=== PATIENT | female | born 1945 | race Caucasian/White ===

== ENCOUNTER 2024-02-19 09:57 | Inpatient (IN) ==
--- NOTE | 2024-02-18 09:49 | Anesthesiology Consultation ---
Date of Service February 18, 2024 Assessment & Plan (1) Encounter for pre-operative examination: - Infectious disease screening: Per assessment on 02/05/24: No known recent infectious disease contacts or current infectious disease symptoms. - Eliquis instructions per surgeon/prescriber - Vascular visit (11/19/23): "CT angiography shows a severe stenosis of the carotid bifurcation on the left at the origin of the internal carotid.. At this point being that this is severe stenosis we underwent a discussion about the intervention on carotid stenosis.. she agreed to go ahead with a TCAR approach.." - PCP visit (01/07/24): "her ekg was done and no acute changes.. her cxr was ordered for pre op.. she is to continue with her current meds.. i did speak with dr palacio's office and advised pt needs scheduled for her surgery in feb or mar. she is to keep her appts with her other physicians.. her lab work was ordered pre op which she is not to have done until surgery is scheduled.. call if problems or sx worsen" Chart Review Chart Review: Acceptable Risk for Surgery and Patient NOT seen in Pre Admission Testing History Surgery Operation Date: 02/19/24 11:30 Proposed Procedures p Left Transcarotid Artery Revascularization - Derek Palacio MD Height/Weight Height: 5 ft 5 in Weight: 70.76 kg Allergies Allergy/AdvReac Type Severity Reaction Status Date / Time No Known Drug Allergies Allergy Verified 02/05/24 12:15 Medications Home Medications Medication Instructions Recorded Confirmed Last Taken cholecalciferol (vitamin D3) 25 1,000 units PO QAM 03/13/19 02/05/24 Unknown mcg (1,000 unit) capsule coenzyme Q10 200 mg capsule (Co 200 mg PO QAM 03/13/19 02/05/24 Unknown Q-10) multivitamin 1 tab PO QAM 03/13/19 02/05/24 Unknown wheat dextrin 1 gram tablet 1 gm PO QAM 03/13/19 02/05/24 Unknown cranberry 500 mg capsule 500 mg PO QAM 05/20/19 02/05/24 Unknown apixaban 5 mg tablet (Eliquis) 5 mg PO BID #90 tabs 07/12/23 02/05/24 Unknown aspirin 81 mg tablet,delayed 81 mg PO QPM 01/07/24 02/05/24 Unknown release (Adult Low Dose Aspirin) atorvastatin 20 mg tablet 20 mg PO QPM 01/07/24 02/05/24 Unknown clopidogrel 75 mg tablet (Plavix) 75 mg PO QAM 01/07/24 02/05/24 Unknown atenolol 50 mg tablet 50 mg PO QPM 02/05/24 02/05/24 Unknown Past Medical History Medical History PFO (patent foramen ovale) Noted on 2020 Echo Stenosis of left vertebral artery Submandibular lymphadenopathy Axillary adenopathy Diverticulosis Hyperlipidemia Left thyroid nodule Biopsy x3 "Benign" Left carotid stenosis Paroxysmal atrial fibrillation Taking Eliquis F/U PRN per cardio 2020 evaluation Hypertension Past Family History Family History Mother Breast cancer Brother Prostate cancer Pancreatic cancer Bone cancer Denies family history of Ovarian cancer Myocardial infarction Colorectal cancer Past Surgical History Surgical History Hx of colonoscopy S/P thyroid biopsy benign Hx of hand surgery (1999) x2 right thumb and middle finger trigger finger surgery History of removal of cyst back of neck, "benign" no anesthesia Social History Smoking Status: Never smoker Do You Dip or Chew Tobacco: No Hx Alcohol Use: Yes Alcohol type: wine alcohol intake frequency: a few times a month Hx Substance Use: No Testing Laboratory Results 02/18/24 10:40 02/18/24 10:40 PT 11.4 Seconds (9.0-12.0) 02/18/24 10:40 INR 1.1 (0.9-1.1) 02/18/24 10:40 APTT 29 Seconds (21-31) 02/18/24 10:40 Blood Type A Negative 02/18/24 10:41 Antibody Screen NEGATIVE 02/18/24 10:41 Electrocardiogram Date: 01/07/24 SR with sinus arrhythmia at 65bpm. "Normal ECG" Chest X-Ray Date: 01/07/24 Findings: + NAD Echocardiogram Date: 08/26/20 EF 65-70%. No RWMA. Mild biatrial dilation. No significant valvular disease. PFO. Grade I DD. Other Testing Carotid duplex Date: 10/17/23 LICA 50-69% stenosis. Suggestive of high grade common carotid disease which may render estimation of ICA stenosis inaccurate. CTA Neck Date: 10/30/23 LICA approximately 50%. Severe left vertebral artery stenosis. Diminished right common and ICA without focal stenosis. Severe stenosis involving the very distal common carotid artery at the bifurcation. Severe left vertebral artery stenosis. Left axillary and right submandibular lymphadenopathy.
--- NOTE | 2024-02-18 11:15 | History & Physical Report ---
Date of Service February 18, 2024 Assessment & Plan (1) Stenosis of left internal carotid artery: Plan: Being that there is a severe stenosis we underwent a discussion about the intervention on her carotid stenosis. We went over the procedures available which included a carotid enterectomy versus a TCAR. After thorough discussion she agreed to go ahead with a TCAR approach. She understood the risks options and benefits which were documented on the consent form. History of Present Illness Chief Complaint: Severe left internal carotid artery stenosis Primary Care Provider: Patrick Fuentes DO Ms. Willis is a 77-year-old fairly healthy female who was having routine ultrasounds for carotid stenosis. It was found that the left carotid stenosis has worsened. She underwent CT angiography which showed a severe stenosis of her left internal carotid artery at the bifurcation of the common. She has no history of CVAs or TIAs or amaurosis fugax. She has no complaints of claudication of the upper or lower extremities. Allergies Allergy/AdvReac Type Severity Reaction Status Date / Time No Known Drug Allergies Allergy Verified 02/05/24 12:15 Home Medications Medication Instructions Recorded Confirmed Type cholecalciferol (vitamin D3) 25 1,000 units PO QAM 03/13/19 02/05/24 History mcg (1,000 unit) capsule coenzyme Q10 200 mg capsule (Co 200 mg PO QAM 03/13/19 02/05/24 History Q-10) multivitamin 1 tab PO QAM 03/13/19 02/05/24 History wheat dextrin 1 gram tablet 1 gm PO QAM 03/13/19 02/05/24 History cranberry 500 mg capsule 500 mg PO QAM 05/20/19 02/05/24 History apixaban 5 mg tablet (Eliquis) 5 mg PO BID #90 tabs 07/12/23 02/05/24 Rx aspirin 81 mg tablet,delayed 81 mg PO QPM 01/07/24 02/05/24 History release (Adult Low Dose Aspirin) atorvastatin 20 mg tablet 20 mg PO QPM 01/07/24 02/05/24 History clopidogrel 75 mg tablet (Plavix) 75 mg PO QAM 01/07/24 02/05/24 History atenolol 50 mg tablet 50 mg PO QPM 02/05/24 02/05/24 History Past Med/Surg History Problem List (Updated 02/18/24 @ 11:13 by Derek Hermosillo MD) Stenosis of left internal carotid artery Encounter for pre-operative examination Axillary adenopathy Submandibular lymphadenopathy Stenosis of left vertebral artery Left thyroid nodule Female cystocele Frequent PVCs Hyperlipidemia (Chronic) Hypertension (Chronic) Medical History PFO (patent foramen ovale) Noted on 2020 Echo Stenosis of left vertebral artery Submandibular lymphadenopathy Axillary adenopathy Diverticulosis Hyperlipidemia Left thyroid nodule Biopsy x3 "Benign" Left carotid stenosis Paroxysmal atrial fibrillation Taking Eliquis F/U PRN per cardio 2020 evaluation Hypertension Surgical History Hx of colonoscopy S/P thyroid biopsy benign Hx of hand surgery (1999) x2 right thumb and middle finger trigger finger surgery History of removal of cyst back of neck, "benign" no anesthesia Family History Mother Breast cancer Brother Prostate cancer Pancreatic cancer Bone cancer Denies family history of Ovarian cancer Myocardial infarction Colorectal cancer Social History Smoking Status: Never smoker Second Hand Exposure: No; Do You Dip or Chew Tobacco: No; Tobacco Cessation Education Requested by Patient: No Hx Alcohol Use: Yes Alcohol type: wine Alcohol Intake Frequency: Monthly or Less Hx Substance Use: No Preferred Language: Syriac Communication Ability: Effective Visual Impairment: Limited Hearing Ability: Normal 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 Estate Assessor Required: No Beliefs That Will Affect Care: None marital status: Current Living Situation: Spouse current occupational status: 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 How many Children do You have: 3 Other Information That Helps Us Care for You: No Feels Safe at Home: Yes Safety Concerns: Feels Safe At This Time Childhood Exposure to Second-Hand Smoke: Yes Diet: regular caffeine: Yes (coffee 3-4 cups/day) during the past year weight has: remained stable Dental Care, Regularly: Yes Physical Activity Frequency: Daily Physical Activity Frequency Comment: bowl twice a week, walks on treadmill Seatbelt Use: always Sunscreen Use: Yes Do you think of yourself as: straight/heterosexual Gender Identity: Female Assistive Devices: Glasses Review of Systems All systems reviewed & are unremarkable except as noted in HPI & below Physical Exam Physical Exam: On exam she is awake alert and oriented x 3. Her blood pressure is 162/88 on the right and 166/90 on the left. She is in no apparent distress. Her radials and carotids are +2 bilaterally. There is a left carotid bruit. Lungs are clear. Heart is regular in rhythm abdominal exam is benign. Femorals and pedal pulses are all +2 bilaterally. She has normal capillary refill in both feet. Neurologic exam is grossly intact motor and sensory function
[2024-02-18 12:52] LABS: INR 1.1 (0.9-1.1); Partial Thromboplastin Ratio 1.1; Partial Thromboplastin Time 29 Seconds (21-31); Prothrombin Time 11.4 Seconds (9.0-12.0)
[2024-02-18 12:53] LABS: Basophils # (auto) 0.06 K/uL (0.00-0.20); Basophils % (auto) 0.7 %; Eosinophils # (auto) 0.18 K/uL (0.00-0.50); Hematocrit (blood only) 38.9 % (37.0-47.0); Hemoglobin 12.3 g/dl (12.0-16.0); Immature Granulocytes # (auto) 0.02 K/uL (0.01-0.20); Immature Granulocytes % (auto) 0.2 %; Lymphocytes # (auto) 3.36 K/uL (1.20-3.40); Lymphocytes % (auto) 38.1 %; Mean Corpuscular Hemoglobin 30.3 pg (25.0-34.0); Mean Corpuscular Hgb Conc 31.6 g/dL (32.0-36.0); Mean Corpuscular Volume 95.8 fL (80.0-100.0); Monocytes # (auto) 1.14 K/uL (0.11-0.59); Monocytes % (auto) 12.9 %; Neutrophils # (auto) 4.06 K/uL (1.40-6.50); Neutrophils % (auto) 46.1 %; Platelet Count 323 K/uL (130-400); RDW Standard Deviation 46.2 fL (36.4-46.3); Red Blood Count 4.06 M/uL (4.20-5.40); White Blood Count 8.82 K/ul (4.8-10.8)
[2024-02-18 13:42] LABS: BUN Creatinine Ratio 18.8 (10-20); Calcium 9.3 mg/dl (8.6-10.3); Creatinine Clr Calc Pharmacy 56.3 ml/min; Est GFR (African American) 81.3 ml/min; Est GFR (Non-African American) 70.1 ml/min
[2024-02-19] MEDS ORDERED: ONDANSETRON INJ 2 MG/ML 2 ML VIAL ONE (10:28)
[2024-02-19] MEDS ORDERED: LIDOCAINE 2% 2 ML VIAL/AMP(20MG/ML) INFIL ONE (10:28)
[2024-02-19] MEDS ORDERED: GLYCOPYRROLATE 0.2 MG/ML VIAL ONE (10:28)
[2024-02-19] MEDS ORDERED: fentaNYL citrate PF 100 MCG/2 ML VIAL ONE ×2 (10:28→15:34)
[2024-02-19] MEDS ORDERED: DEXAMETHASONE SOD INJ 4 MG/ML VIAL ONE (10:28)
[2024-02-19] MEDS ORDERED: PROPOFOL IV EMULSION 10 MG/ML 20 ML VIAL IV ONE (10:28)
[2024-02-19] MEDS ORDERED: ROCURONIUM BROMIDE 10 MG/ML 5 ML VIAL IV ONE (10:28)
[2024-02-19] MEDS: LACTATED RINGER'S 1,000 ML IV SCH (10:47)
[2024-02-19] MEDS ORDERED: ONDANSETRON INJ 2 MG/ML 2 ML VIAL IV PRN (11:05)
[2024-02-19] MEDS ORDERED: ePHEDrine sulfate 50 MG/ML AMP IV PRN (11:05)
[2024-02-19] MEDS ORDERED: fentaNYL citrate PF 100 MCG/2 ML VIAL IV PRN (11:05)
[2024-02-19] MEDS ORDERED: ATROPINE SULFATE 0.1 MG/ML 10ML SYR IV PRN (11:05)
[2024-02-19] MEDS ORDERED: CALCIUM CHLORIDE 10% 10 ML SYR IV ONE (11:37)
[2024-02-19] MEDS ORDERED: ceFAZolin 330 MG/ML 1 GM VIAL ONE (11:43)
--- NOTE | 2024-02-19 13:55 | Anesthesia Procedure Note ---
Anesthesia Procedure Note Arterial Line Note Patient medical history, medications, allergies and vitals reviewed Consent: Risk / Benefits Reviewed With: PT / POA / Parent / Guardian, Accepts Plan, Informed Consent Obtained and All Questions Answered Monitors attached: Blood Pressure, CO2, EKG and Pulse Oximetry Time out completed: Yes Hand hygeine: Soap and water and Alcohol based hand rub Equipment/Supplies: Cap, Mask, Sterile gown, Sterile gloves, Sterile drapes and Sterile procedures used Skin prep: Chloraprep Local medication: 1% Lidocaine (ml) Ultrasound used: Yes Attempts: 1 Procedure Summary: 20 gauge angiocath advanced until return of bright red blood and needle was advanced beyond the artery using a through and through technique. Needle was removed and catheter withdrawn until return of pulsatile red blood. An arterial wire was advanced through the catheter and into the artery and the catheter was then treaded into place over the wire. The wire was removed and the catheter secured with tape and covered with occlusive dressing. Waveform consistent with correct arterial placement. After placement, normal perfusion was observed distal to the site of catheter placement. Post-Procedure: Pt hemodynamically stable, Pt tolerates well and No complication
--- NOTE | 2024-02-19 14:42 | History & Physical Bridge Note ---
Date of Service February 19, 2024 History & Physical Bridge Note I have examined the patient, reviewed the History & Physical and in the interval since the performance of the History & Physical I have noted the following changes of clinical significance: no changes noted
[2024-02-19] MEDS: ceFAZolin 2000MG 2,000 MG/15 ML SYR IV SCH ×2 (15:06→22:28)
[2024-02-19] MEDS ORDERED: HEPARIN SOD (PORCINE) 1000 UNIT/ML ONE (15:35)
--- OUTSIDE RECORDS SUMMARY | 2024-02-19 15:44 | External Medical Summary | Summary of Care ---
Author Name Unknown Organization [facility] Address [address] [place] [address] Phone [phone] Care Team Providers Care Cigarette Tipper Name Role Phone Rich FuentesAdriano Primary Care Provider [phone] Encounter Details Date Type Department Care Team (Late st Contact Info) Description 01/07/2024 Orders Only Radiology, [facility] [address] [place] [id number] Requisition, External Radiology [address] [place] [address] Encounter for other preprocedural examination* Allergies No known active allergiesdocumented as of this encounter (statuses as of 01/07/2024) Medications Medication Sig Dispensed Refills Start Date End Date Status MULTIVITAMIN TABS OR one pill each day 0 04/30/2003 Active acetaminophen (TYLENOL) 325 MG Tablet Take 325 mg by mouth every 6 hours as needed for Pain. Active HYDROcodone-acetamino phen 5-325 mg per tab 5-325 MG per tablet Take 5-325 Tabs by mouth as needed for Pain. Take 1 to 2 tablets every 4 to 6 hours as needed for pain. 0 11/30/2016 Active MEGARED OMEGA-3 KRILL OIL 500 MG CAPS Take by mouth. Acti ve atorvaSTATin (LIPITOR) 20 MG TabletIndications:Dys lipidemia, goal LDL below 130 Take 1 Tab by mouth daily. 90 Tab 3 05/27/2018 Active atenolol (TENORMIN) 50 MG TabletIndications:HTN , goal below 140/90 TAKE 1 TABLET BY MOUTH DAILY FOR BLOOD PRESSURE 90 Tab 3 10/13/2018 Active documented as of this encounter (statuses as of 01/07/2024) Active Problems Problem Noted Date Diagnosed Date Impaired fasting glucose 09/09/2013 Overview: FBG 14 = 106 Dyslipidemia, goal LDL below 130 07/07/2009 Overview: Per Lipid Taxonomy. Fish oil, RYR 10 year ASCVD risk 03/12/2014 = 11.1% 10 year ASCVD risk 06/08/2015 = 11.7% 10 year ASCVD risk 01/19/2016 = 12.5% 10 year ASCVD risk 08/02/2016 = 13.7% Personal history of cervical dysplasia 9 Overview: 1980 txd. Normal pap 06/01, 03/03 DIVERTICULOSIS OF COLON 05/31/2005 Overview: 03/31 ADVANCE DIRECTIVE INFORMATION 04/18/2005 Overview: No, Advance Directive brochure offered , patient declined. DIFFUS CYSTIC MASTOPATHY 11/08/2004 HTN, goal below 150/90 10/16/2002 Overview: Atenolol 12/2801/26/2016 Home cuff: 130/79 Our cuff: 138/84 documented as of this encounter (statuses as of 01/07/2024) Resolved Problems Problem Noted Date Diagnosed Date Resolved Date Family hx-breast malignancy 11/21/2008 02/06/2017 Overview: mom Family history of GI malignancy 11/21/2008 02/06/2017 Overview: Fa 80. Scope 03/31 tics. Repeat 5 yr Special screening for osteoporosis 11/21/2008 02/06/2017 Overview: Dexa 11/26 repeat 5 yr Dyslipidemia, goal LDL below 160 04/11/2007 07/07/2009 Overview: Per Lipid Taxonomy. Fish oil Rotator cuff syndrome 04/11/20072008 documented as of this encounter (statuses as of 01/07/2024) Immunizations Name Administration Dates Next Due COVID-19 mRNA, LNP-s, No Pre serve, 2-Dose Series (Pfizer) 05/24/2021,10/19/2020,09/21/2020 Pneumococcal Conjugate Vacc, 13 Valent (Prevnar) 01/26/2016 Pneumococcal Polysaccharide PPV23 (Pneumovax) 01/04/2010 Seasonal Influenza, PF, 6 M & above, IM , (FluLaval or Fluzone) 05/27/2018 Seasonal Influenza, Quadriva lent, No Preserve, IM 05/23/2015 Seasonal Influenza, Split, I IV3, With Preserve, Inj 04/24/2014,04/04/2013,06/11/2012,06/04,04/26/2010,04/12/2009,05/19/2008 ,05/30/2007,05/28/2006 TDAP, Age 7 and older, IM (Adacel) 01/09/2008 Varicella Zoster Vaccine (Adult) 12/10/2011 documented as of this encounter Social History Tobacco Use Types Packs/Day Years Used Date Smoking Tobacco: Never Smokeless Tobacco: Never Alcohol Use Standard Drinks/Week Comments No 0 (1 standard drink = 0.6 oz pur e alcohol) PHQ-2 Answer Date Recorded PHQ-2 Score 0 05/27/2018 Exercise Vital Sign Answer Date Recorde d Days of Exercise per Week 3 days 2017 Minutes of Exercise per Session 30 min 05/27/2018 Sex and Gender Information Value Date Recorded Sex Assigned at Not on file Gender Identity Not on file Sexual Orientation Not on file Job Start Date Occupation Industry Not on file Not on file Not on file documented as of this encounter Plan of Treatment Pending Results Name Type Priority Associated Diagnoses Date /Time XR CHEST 2 VIEWS Medical Imaging Routine Encounter for other preprocedural examination 01/07/2024 11:23 AM EDT Scheduled Procedures Name Priority Associated Diagnoses Date/Ti me COLONOSCOPY FLEXIBLE PROXIMA L DIAGNOSTIC Recall Family history of colon cancer Health Maintenance Due Date Last Done Comments Albumin/Creatinine Ratio 1963 Zoster Vaccines (2 of 3) 02/04/2012 12/10/2011 DTaP,Tdap,and Td Vaccines (2 - Td or Tdap) 01/08/2018 01/09/2008 GFR 05/19/2019 05/19/2018, 01/2017, 07/30/2016, Additional history exists Depression Screening 05/27/2019 05/27/2018 Mammogram 09/23/2019 09/22/2018, 08/22, 09/05/2016, Additional history exists DXA Scan 04/10/2020 04/10/2013, 04/10/2013 Colonoscopy 04/27/2021 04/27/2016, 01/2016, 03/31/2010 COVID-19 Vaccine ( season) 2023 01/08/2022, 05/24/2021, 10/19/2020, Additional history exists Influenza Vaccine (FLU shot) (Season Ended) 2024 05/20/2019, 05/27/2018, 05/23/2015, Additional history exists RETIRED - COLONOSCOPY-EVERY 5 YRS AGES 18-100 Discontinued 04/27/2016, 04/27/2016, 03/31/2010, Additional history exists Pneumococcal Vaccine: 65+ Years Completed 07/08/2023, 01/26/2016, 01/04/2010 GARDASIL-HPV IMMUNIZATION SERIES Aged Out No longer eligible based on patient's age to complete this topic Hepatitis B Aged Out No longer eligi ble based on patient's age to complete this topic MENINGOCOCCAL (MENACTRA/MENVEO) Aged Out No longer eligible based on patient's age to complete this topic documented as of this encounter Medical Devices Not on filedocumented as of this encounter Visit Diagnoses Diagnosis Encounter for other preprocedural examination- Primary documented in this encounter Care Teams Cigarette Tipper Relationship Specialty Start Date End Date Patrick Fuentes DO [address] [place] [address] PCP - General Family Medicine 08/15/20 documented as of this encounter
[2024-02-19] MEDS ORDERED: PROTAMINE SULFATE 10 MG/ML 5 ML VIAL IV ONE (15:56)
[2024-02-19] MEDS: HEPARIN (PORCINE) 1000 UNIT/ML 10 ML (CATH LAB USE ONLY) ONE (15:59)
[2024-02-19] MEDS: THROMBIN FOR SOLN 20000 UNIT KIT ONE (16:04)
[2024-02-19] MEDS: BUPIVACAINE/EPINEPHRINE 0.5% MPF 1:200,000 30 ML VIAL ONE (16:04)
[2024-02-19] MEDS: ceFAZolin 330 MG/ML 1 GM VIAL ONE (16:04)
[2024-02-19] MEDS: GELATIN SPONGE SZ 100 ONE (16:04)
[2024-02-19] MEDS: VISIPAQUE IV ONE (16:08)
[2024-02-19] MEDS ORDERED: SUGAMMADEX SODIUM 200 MG/2 ML VIAL IV ONE (16:09)
--- NOTE | 2024-02-19 16:23 | Procedure Note ---
Angiogram Post Procedure Fluoroscopy Time (minutes): 2.4 Radiation (mGy): 14 Contrast: 9 Post Operative Report Pre & Post Diagnosis Operation Date: 02/19/24 11:30 Pre-Op Diagnosis: Stenosis of left internal carotid artery Post-Op Diagnosis: Stenosis of left internal carotid artery I identified the patient and participated in the time-out.: Yes Procedure Operation Date: 02/19/24 11:30 Actual Procedures p Left Transcarotid Artery Revascularization, Ultrasound Right Common Femoral Vein(Left) - Derek Hermosillo MD Surgeon Derek Hermosillo MD Principle Software Engineer none Estimated Blood Loss 10 Findings Consistent with Post-Op Diagnosis Specimens none Anesthesia Type General Disposition Accompanied Patient To Recovery: No Disposition: Recovery Room Indications This is a 78-year-old female with a severe stenosis of the left internal carotid artery. Endarterectomy versus TCAR were discussed with the patient. She elected to go ahead with TCAR procedure. I have discussed the risks options and benefits of the procedure with the patient. The patient understands the risks options and benefits and agrees to the procedure. Description of Procedure The patient was taken to the operating room and placed in supine position. After general anesthesia was accomplished the groins and left side of the neck and chest were prepped and draped in a sterile manner. Timeout was performed and the patient was identified. A transverse incision was made just above the clavicle between the heads of the sternocleidomastoid. This is carried down to where the common carotid artery was identified. It was isolated. It was slung with umbilical tape. Next the U stitch was placed in the common carotid artery with a 5-0 Prolene suture. Patient was given 7000 heparin at that time. Ultrasound was then used to localize the right common femoral vein. The vein was patent and compressed easily. Under ultrasound guidance the right common femoral vein was punctured and the venous sheath was inserted. This was aspirated and flushed with heparinized saline. ACT at that time was 347. Using micropuncture technique the common carotid artery was punctured. The micro sheath was inserted to 3 cm. Injection was then done showing the bifurcation. There was a significant lesion seen at the origin of the internal carotid artery on the left side. We then inserted the J-wire left and short of the lesion. The micro sheath was removed and the TCAR sheath was inserted. Once it was in place and held against the artery it was sutured to the chest wall and the incision edge. We then flushed the tubing appropriately. The venous return to was clamped onto the TCAR sheath. It was flushed through and then attached to the venous inflow sheath in the left groin. Sheath was checked for flow. The saline cleared nicely. The common carotid artery was then clamped. Flow reversal was instituted. We inserted a 6 x 25 balloon backloaded on the wire. The wire was passed through the lesion into the petrous portion of the internal carotid. The 6 balloon was then advanced to the lesion. Lesion was then predilated with a 6 mm balloon. Balloon was removed. We then inserted the 9/7 x 30 stent. This was deployed across the lesion without difficulty. The catheter was removed. The carotid was allowed to go 2 minutes with flow reversal. Completion angiogram was done at that time which showed a widely patent carotid stent. At that point the common carotid artery was unclamped. The venous return tubing was clamped and removed from the TCAR sheath. The blood was allowed to flow back into the venous system. Once this was completed the sheath was pulled from the groin and pressure was applied. The TCAR sheath was then removed and the 5-0 Prolene suture securely tied. Hemostasis was noted of the puncture site. Patient was given 25 mg of protamine to reverse the heparin effect. This was done prior to pulling the groin sheath. Wound was irrigated with Ancef solution. Adequate hemostasis was obtained of the wound. Once this was noted the wound was closed in usual fashion using a 3-0 Vicryl suture for the subcutaneous layer and a 4-0 subcuticular Vicryl suture for the skin edges. Dermabond was used for dressing.The patient left the operation room in satisfactory condition and tolerated the procedure well. All needle and sponge counts were correct at the end of the procedure. I attest to the content of the Intraoperative Record and any orders documented therein. Any exceptions are noted below.
[2024-02-19] MEDS ORDERED: LABETALOL HCL IV 5 MG/ML 20ML IV ONE ×2 (16:46→17:03)
--- NOTE | 2024-02-19 17:36 | Anesthesiology Progress Note ---
Date of Service February 19, 2024 Anesthesia Post Procedure Vital Signs Vital Signs: Temp Pulse Pulse Resp BP BP BP 02/19/24 17:30 36.7 C 63 19 148/63 H 144/77 H 02/19/24 17:20 36.7 C 65 14 152/64 H 151/77 H 02/19/24 17:10 76 22 166/72 H 151/79 H 02/19/24 17:00 70 24 157/70 H 158/82 H 02/19/24 16:51 36.7 C 80 16 156/70 H 149/65 H 02/19/24 10:28 36.8 C 80 20 166/85 H Pulse Ox O2 Del Method O2 Flow Rate 02/19/24 17:30 97 Nasal Cannula 2 02/19/24 17:20 95 Nasal Cannula 3 02/19/24 17:10 98 Oxymask 3 02/19/24 17:00 98 Oxymask 3 02/19/24 16:51 95 Oxymask 5 02/19/24 10:28 96 Room Air Transfer of Care Handoff Completed per policy Notes Mental Status: alert / awake / arousable and participated in evaluation Patient Amnestic to Procedure: Yes Nausea / Vomiting: adequately controlled Pain: adequately controlled Airway Patency, RR, SpO2: stable & adequate BP & HR: stable & adequate Hydration State: stable & adequate Anesthetic Complications: no major complications apparent and Pt Satisfied with anesthetic care
[2024-02-19] MEDS ORDERED: STAT IV Infusion **Titration per Protocol STA (18:52)
[2024-02-19] MEDS ORDERED: PHENYLEPHRINE/NSS 25 MG/250 ML BAG IV PRN (18:52)
[2024-02-19] MEDS ORDERED: oxyCODONE/ACETAMINOPHEN 5mg/325mg TAB PO PRN (18:52)
[2024-02-19] MEDS: ATORVASTATIN 20 MG TAB PO SCH (20:14)
[2024-02-19] MEDS: ATENOLOL 50 MG TABLET PO SCH (20:14)
[2024-02-19] MEDS: APIXABAN 5 MG TABLET PO SCH (20:15)
[2024-02-19] MEDS: ASPIRIN 81 MG ECTAB PO SCH (20:15)
--- NOTE | 2024-02-19 22:52 | Critical Care Consultation ---
Date of Consultation February 19, 2024 Assessment & Plan (1) Stenosis of left internal carotid artery: Status post left TCAR. Patient admitted to ICU for further monitoring postop overnight. -Empiric Ancef - ASA, Eliquis held tonight Following procedure - Further management per vascular surgery (2) Stenosis of left vertebral artery: Asymptomatic. Noted on previous CTA. Continue ASA, statin, Plavix (3) Hyperlipidemia: Continue statin (4) Paroxysmal atrial fibrillation: Currently sinus rhythm on monitor. Eliquis on hold due to recent surgery, restart per vascular surgery. Continuous monitoring on telemetry Supervising Physician Co-Signing Physician Notes Patient seen and examined. EMR reviewed. Discussed with critical care EARLINE and agree with assessment plan as noted. Please refer to my progress note from 02/20/2024 for additional details. History of Present Illness Attending Physician: Derek Hermosillo MD History of Present Illness Patient is a 78-year-old female with past medical history of paroxysmal A-fib, vertebral artery stenosis, HLD, HTN, and carotid artery stenosis that presents to the ICU following TCAR for left carotid artery. Patient had asymptomatic carotid stenosis which was being monitored and was found to have worsened on most recent CTA. She was scheduled for routine TCAR of the left carotid artery, for which she now presents postop to the ICU for monitoring overnight. On arrival to the ICU the patient is alert and oriented without acute distress. She denies any pain, numbness, tingling, changes in vision, headaches, syncope, dizziness, or other neurological symptoms. She denies recent illness or fevers, cough or congestion, shortness of breath, chest pain, palpitations, abdominal pain, nausea vomiting or diarrhea, swelling in hands or feet, or changes in gait. Patient to remain in ICU for further management at this time. Allergies Allergy/AdvReac Type Severity Reaction Status Date / Time No Known Drug Allergies Allergy Verified 02/19/24 10:22 Home Medications Medication Instructions Recorded Confirmed Type cholecalciferol (vitamin D3) 25 1,000 units PO QAM 03/13/19 02/19/24 History mcg (1,000 unit) capsule coenzyme Q10 200 mg capsule (Co 200 mg PO QAM 03/13/19 02/19/24 History Q-10) multivitamin 1 tab PO QAM 03/13/19 02/19/24 History wheat dextrin 1 gram tablet 1 gm PO QAM 03/13/19 02/19/24 History cranberry 500 mg capsule 500 mg PO QAM 05/20/19 02/19/24 History apixaban 5 mg tablet (Eliquis) 5 mg PO BID #90 tabs 07/12/23 02/19/24 Rx aspirin 81 mg tablet,delayed 81 mg PO QPM 01/07/24 02/19/24 History release (Adult Low Dose Aspirin) atorvastatin 20 mg tablet 20 mg PO QPM 01/07/24 02/19/24 History clopidogrel 75 mg tablet (Plavix) 75 mg PO QAM 01/07/24 02/19/24 History atenolol 50 mg tablet 50 mg PO QPM 02/05/24 02/19/24 History Patient History Medical History PFO (patent foramen ovale) Noted on 2020 Echo Stenosis of left vertebral artery Submandibular lymphadenopathy Axillary adenopathy Diverticulosis Hyperlipidemia Left thyroid nodule Biopsy x3 "Benign" Left carotid stenosis Paroxysmal atrial fibrillation Taking Eliquis F/U PRN per cardio 2020 evaluation Hypertension Surgical History Hx of colonoscopy S/P thyroid biopsy benign Hx of hand surgery (1999) x2 right thumb and middle finger trigger finger surgery History of removal of cyst back of neck, "benign" no anesthesia Family History Mother Breast cancer Brother Prostate cancer Pancreatic cancer Bone cancer Denies family history of Ovarian cancer Myocardial infarction Colorectal cancer Social History Smoking Status: Never smoker Second Hand Exposure: No; Do You Dip or Chew Tobacco: No; Tobacco Cessation Education Requested by Patient: No Hx Alcohol Use: No Hx Substance Use: No Preferred Language: Greenlandic Communication Ability: Effective Visual Impairment: Limited Hearing Ability: Normal News Clipping Cutter Required: No Beliefs That Will Affect Care: None marital status: Current Living Situation: Spouse Current Living Situation Comment: with current occupational status: 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 How many Children do You have: 3 Other Information That Helps Us Care for You: No Feels Safe at Home: Yes Safety Concerns: Feels Safe At This Time Childhood Exposure to Second-Hand Smoke: Yes Diet: regular caffeine: Yes (coffee 3-4 cups/day) during the past year weight has: remained stable Dental Care, Regularly: Yes Physical Activity Frequency: Daily Physical Activity Frequency Comment: bowl twice a week, walks on treadmill Seatbelt Use: always Sunscreen Use: Yes Do you think of yourself as: straight/heterosexual Gender Identity: Female Assistive Devices: Glasses Review of Systems Review of Systems: All systems reviewed & are unremarkable except as noted in HPI & below Physical Exam Constitutional: WD/WN, vitals as above Eyes: PERRL, conjunctivae normal, anicteric sclerae ENMT: external ear and nose normal, oropharynx normal Neck: trachea midline, no thyromegaly Respiratory: normal respiratory effort, lungs clear to auscultation Cardiovascular: RRR, no murmur, no edema Heart Sounds: normal S1 and normal S2 Gastrointestinal (Abdomen): normal bowel sounds, soft, nontender, no hepatosplenomegaly Musculoskeletal: no cyanosis or clubbing, extremities motor strength 5/5 Skin: Erythema in the anterior left neck with mild to moderate swelling, patient also has bloody dressing to the right groin, with mild swelling and erythema Neurologic: PERRL, EOMI, accommodation nl, no face palsy, no dysarthria Psychiatric: A+Ox3, euthymic affect Results & Data Results & Data Vital Signs (Past 12 Hours) Vital Signs Temp Pulse Pulse Pulse Resp BP BP 02/19/24 19:42 73 18 02/19/24 19:03 73 18 02/19/24 19:00 145/84 H 02/19/24 19:00 145/84 H 02/19/24 18:57 67 22 02/19/24 18:52 36.9 C 02/19/24 18:51 67 02/19/24 18:30 69 19 02/19/24 18:15 63 20 02/19/24 18:00 36.7 C 69 17 02/19/24 17:45 36.7 C 66 17 02/19/24 17:30 36.7 C 63 19 02/19/24 17:20 36.7 C 65 14 02/19/24 17:10 76 22 02/19/24 17:00 70 24 02/19/24 16:51 36.7 C 80 16 02/19/24 10:28 36.8 C 80 20 166/85 H BP BP Pulse Ox O2 Del Method O2 Flow Rate 02/19/24 19:42 97 02/19/24 19:03 97 02/19/24 19:00 02/19/24 19:00 02/19/24 18:57 98 02/19/24 18:52 02/19/24 18:51 97 02/19/24 18:30 144/62 H 143/72 H 97 Nasal Cannula 2 02/19/24 18:15 140/60 139/74 97 Nasal Cannula 2 02/19/24 18:00 141/61 H 137/75 96 Nasal Cannula 2 02/19/24 17:45 141/59 H 133/73 96 Nasal Cannula 2 02/19/24 17:30 148/63 H 144/77 H 97 Nasal Cannula 2 02/19/24 17:20 152/64 H 151/77 H 95 Nasal Cannula 3 02/19/24 17:10 166/72 H 151/79 H 98 Oxymask 3 02/19/24 17:00 157/70 H 158/82 H 98 Oxymask 3 02/19/24 16:51 156/70 H 149/65 H 95 Oxymask 5 02/19/24 10:28 96 Room Air Coding Level of Care Code 98069 IN/OBS CONSULT LVL 3,45M Diagnoses Stenosis of left internal carotid artery I65.22 Stenosis of left vertebral artery I65.02 Hyperlipidemia E78.5 Paroxysmal atrial fibrillation I48.0 Time Spent (min) 38
[2024-02-20] MEDS: ondansetron HCL 6 MG in DEXTROSE 5% 50 ML IV PRN (01:08)
[2024-02-20] MEDS: MULTIVITAMIN TAB PO SCH (07:30)
[2024-02-20] MEDS: CHOLECALCIFEROL 25 MCG (1000 UNITS) TAB PO SCH (07:30)
[2024-02-20] MEDS: LACTATED RINGER'S 1,000 ML IV SCH ×2 (07:31→17:43)
--- NOTE | 2024-02-20 08:02 | Critical Care Progress Note ---
Date of Service February 20, 2024 Assessment & Plan (1) Stenosis of left internal carotid artery: (2) Hyperlipidemia: (3) Paroxysmal atrial fibrillation: Plan Impression: 78-year-old female status post left TCAR. Postop day 1 and doing well clinically. Recommendations: 1. Status post TCAR for carotid stenosis. Doing well. Small hematoma postoperatively. Does not appear to be causing any tracheal deviation or airway compromise. Management per vascular surgery. 2. Okay to discontinue arterial line. 3. Holding her anticoagulation for A-fib. Will restart when vascular surgery feels its appropriate given her hematoma. 4. Disposition per vascular surgery. Patient is doing well clinically. From a critical care perspective, her issues are stable. Will sign off. Feel free to contact us with questions or concerns Admission and Anticipated Discharge Date Admission Date: February 19, 2024 Subjective Patient seen and examined. EMR reviewed. The patient is awake alert conversant and in no distress. She is having some mild pain at her incision site. She is experiencing some mild hoarseness but no difficulty with chewing or swallowing. No neurological complaints. She is hemodynamically stable. Review of Systems Review of Systems: All systems reviewed & are unremarkable except as noted in Subjective Physical Exam Constitutional: WD/WN, vitals as above Neck: trachea midline, no thyromegaly Small to moderate-sized hematoma over the incision site in the left supraclavicular area. Mildly tender to palpation Respiratory: normal respiratory effort, lungs clear to auscultation Cardiovascular: Rate/Rhythm: + irregularly irregular Heart Sounds: normal S1 and normal S2; no murmur Extremities: no edema Gastrointestinal (Abdomen): normal bowel sounds, soft, nontender, no hepatosplenomegaly Musculoskeletal: Extremities: extremities normal to inspection Skin: no rashes, warm and dry Neurologic: Nonfocal exam Lymphatic: no cervical lymphadenopathy Results & Data Results & Data Vital Signs (Past 12 Hours) Vital Signs Temp Pulse Resp BP Pulse Ox O2 Del Method 02/20/24 07:36 36.8 C 02/20/24 07:30 135/86 02/20/24 07:30 135/86 02/20/24 07:27 71 19 99 Room Air 02/20/24 07:15 79 19 97 02/20/24 07:12 70 20 98 02/20/24 06:57 71 19 99 02/20/24 05:51 64 17 99 02/20/24 05:45 163/71 H 02/20/24 05:45 163/71 H 02/20/24 05:39 64 15 99 02/20/24 05:30 155/72 H 02/20/24 05:30 155/72 H 02/20/24 05:21 65 16 99 02/20/24 05:18 67 17 99 02/20/24 05:15 153/73 H 02/20/24 05:15 153/73 H 02/20/24 05:15 153/73 H 02/20/24 05:15 153/73 H 02/20/24 05:12 67 16 98 02/20/24 05:03 63 17 99 02/20/24 05:00 159/71 H 02/20/24 04:57 64 15 99 02/20/24 04:54 65 16 99 02/20/24 04:45 161/68 H 02/20/24 04:36 65 17 98 02/20/24 04:15 155/74 H 02/20/24 04:15 65 16 98 02/20/24 04:00 157/88 H 02/20/24 04:00 157/88 H 02/20/24 04:00 157/88 H 02/20/24 04:00 76 16 98 02/20/24 04:00 36.8 C 02/20/24 04:00 76 157/88 H 02/20/24 03:45 167/83 H 02/20/24 03:45 167/83 H 02/20/24 03:33 70 19 99 02/20/24 03:31 166/83 H 02/20/24 03:31 166/83 H 02/20/24 03:27 74 17 99 02/20/24 03:18 87 18 99 02/20/24 03:15 176/84 H 02/20/24 03:00 163/86 H 02/20/24 02:57 69 20 99 02/20/24 02:48 65 16 99 02/20/24 02:45 155/77 H 02/20/24 02:45 155/77 H 02/20/24 02:45 155/77 H 02/20/24 02:45 155/77 H 02/20/24 02:15 165/78 H 02/20/24 02:12 65 16 99 02/20/24 02:00 64 18 99 02/20/24 02:00 173/80 H 02/20/24 02:00 173/80 H 02/20/24 02:00 173/80 H 02/20/24 01:45 62 15 98 02/20/24 01:33 66 18 98 02/20/24 01:30 166/87 H 02/20/24 01:30 166/87 H 02/20/24 01:30 166/87 H 02/20/24 01:30 166/87 H 02/20/24 01:30 166/87 H 02/20/24 01:27 67 18 99 02/20/24 01:16 176/76 H 02/20/24 01:15 65 16 99 02/20/24 01:03 76 16 99 02/20/24 01:00 169/79 H 02/20/24 00:57 76 10 L 98 02/20/24 00:45 171/86 H 02/20/24 00:45 171/86 H 02/20/24 00:31 173/88 H 02/20/24 00:31 173/88 H 02/20/24 00:31 173/88 H 02/20/24 00:30 79 25 H 99 02/20/24 00:15 167/82 H 02/20/24 00:15 167/82 H 02/20/24 00:09 61 15 98 02/20/24 00:00 71 02/20/24 00:00 170/82 H 02/20/24 00:00 170/82 H 02/20/24 00:00 64 17 99 02/20/24 00:00 36.9 C 02/20/24 00:00 62 168/73 H 02/19/24 23:45 171/79 H 02/19/24 23:45 64 16 98 02/19/24 23:33 63 14 98 02/19/24 23:30 163/78 H 02/19/24 23:30 163/78 H 02/19/24 23:30 163/78 H 02/19/24 23:27 62 14 97 02/19/24 23:18 61 21 97 02/19/24 23:15 168/78 H 02/19/24 23:15 168/78 H 02/19/24 23:03 62 16 97 02/19/24 23:00 158/79 H 02/19/24 23:00 62 25 H 98 02/19/24 22:51 165/83 H 02/19/24 22:51 165/83 H 02/19/24 22:51 62 25 H 97 02/19/24 22:45 64 15 165/83 H 97 02/19/24 22:24 73 20 97 02/19/24 22:09 67 15 97 02/19/24 21:45 69 17 98 02/19/24 21:30 69 17 97 02/19/24 21:21 72 25 H 97 02/19/24 20:45 71 18 91 02/19/24 20:39 75 21 98 02/19/24 20:21 74 15 99 Critical Care Results & Data Vital Signs (Past 12 Hours) Vital Signs Temp Pulse Resp BP Pulse Ox O2 Del Method 02/20/24 07:36 36.8 C 02/20/24 07:30 135/86 02/20/24 07:30 135/86 02/20/24 07:27 71 19 99 Room Air 02/20/24 07:15 79 19 97 02/20/24 07:12 70 20 98 02/20/24 06:57 71 19 99 02/20/24 05:51 64 17 99 02/20/24 05:45 163/71 H 02/20/24 05:45 163/71 H 02/20/24 05:39 64 15 99 02/20/24 05:30 155/72 H 02/20/24 05:30 155/72 H 02/20/24 05:21 65 16 99 02/20/24 05:18 67 17 99 02/20/24 05:15 153/73 H 02/20/24 05:15 153/73 H 02/20/24 05:15 153/73 H 02/20/24 05:15 153/73 H 02/20/24 05:12 67 16 98 02/20/24 05:03 63 17 99 02/20/24 05:00 159/71 H 02/20/24 04:57 64 15 99 02/20/24 04:54 65 16 99 02/20/24 04:45 161/68 H 02/20/24 04:36 65 17 98 02/20/24 04:15 155/74 H 02/20/24 04:15 65 16 98 02/20/24 04:00 157/88 H 02/20/24 04:00 157/88 H 02/20/24 04:00 157/88 H 02/20/24 04:00 76 16 98 02/20/24 04:00 36.8 C 02/20/24 04:00 76 157/88 H 02/20/24 03:45 167/83 H 02/20/24 03:45 167/83 H 02/20/24 03:33 70 19 99 02/20/24 03:31 166/83 H 02/20/24 03:31 166/83 H 02/20/24 03:27 74 17 99 02/20/24 03:18 87 18 99 02/20/24 03:15 176/84 H 02/20/24 03:00 163/86 H 02/20/24 02:57 69 20 99 02/20/24 02:48 65 16 99 02/20/24 02:45 155/77 H 02/20/24 02:45 155/77 H 02/20/24 02:45 155/77 H 02/20/24 02:45 155/77 H 02/20/24 02:15 165/78 H 02/20/24 02:12 65 16 99 02/20/24 02:00 64 18 99 02/20/24 02:00 173/80 H 02/20/24 02:00 173/80 H 02/20/24 02:00 173/80 H 02/20/24 01:45 62 15 98 02/20/24 01:33 66 18 98 02/20/24 01:30 166/87 H 02/20/24 01:30 166/87 H 02/20/24 01:30 166/87 H 02/20/24 01:30 166/87 H 02/20/24 01:30 166/87 H 02/20/24 01:27 67 18 99 02/20/24 01:16 176/76 H 02/20/24 01:15 65 16 99 02/20/24 01:03 76 16 99 02/20/24 01:00 169/79 H 02/20/24 00:57 76 10 L 98 02/20/24 00:45 171/86 H 02/20/24 00:45 171/86 H 02/20/24 00:31 173/88 H 02/20/24 00:31 173/88 H 02/20/24 00:31 173/88 H 02/20/24 00:30 79 25 H 99 02/20/24 00:15 167/82 H 02/20/24 00:15 167/82 H 02/20/24 00:09 61 15 98 02/20/24 00:00 71 02/20/24 00:00 170/82 H 02/20/24 00:00 170/82 H 02/20/24 00:00 64 17 99 02/20/24 00:00 36.9 C 02/20/24 00:00 62 168/73 H 02/19/24 23:45 171/79 H 02/19/24 23:45 64 16 98 02/19/24 23:33 63 14 98 02/19/24 23:30 163/78 H 02/19/24 23:30 163/78 H 02/19/24 23:30 163/78 H 02/19/24 23:27 62 14 97 02/19/24 23:18 61 21 97 02/19/24 23:15 168/78 H 02/19/24 23:15 168/78 H 02/19/24 23:03 62 16 97 02/19/24 23:00 158/79 H 02/19/24 23:00 62 25 H 98 02/19/24 22:51 165/83 H 02/19/24 22:51 165/83 H 02/19/24 22:51 62 25 H 97 02/19/24 22:45 64 15 165/83 H 97 02/19/24 22:24 73 20 97 02/19/24 22:09 67 15 97 02/19/24 21:45 69 17 98 02/19/24 21:30 69 17 97 02/19/24 21:21 72 25 H 97 02/19/24 20:45 71 18 91 02/19/24 20:39 75 21 98 02/19/24 20:21 74 15 99 Lab & Micro Results (Past 24 Hours) No Data to Display No Data to Display No Data to Display I & O Totals 24 Hours 02/19/24 02/20/24 02/21/24 06:59 06:59 06:59 Intake Total 953 / 953 Output Total 1170 / 1170 Balance -217 / -217 Cumulative 01/07/24 15:52 thru 02/20/24 05:58 Intake Total 953 Output Total 1170 Balance -217 RT Ventilator Mngmt (Last Documented) Ventilator Ordered Settings Respiratory Rate 19 02/20/24 07:27 Ventilator - PT Measurements Respiratory Rate 19 Coding Level of Care Code 85480 SUB INP/OBS CARE 2/35MIN Diagnoses Stenosis of left internal carotid artery I65.22 Hyperlipidemia E78.5 Paroxysmal atrial fibrillation I48.0
[2024-02-20] MEDS ORDERED: NON-FORMULARY MEDICATION (Coenzyme Q10 [Co Q-10] 200 mg capsule) PO SCH (09:00)
[2024-02-20] MEDS ORDERED: WHEAT DEXTRIN PO SCH (09:00)
--- NOTE | 2024-02-20 13:26 | Surgery Progress Note ---
Date of Service February 20, 2024 Assessment & Plan (1) Stenosis of left internal carotid artery: Plan: Surgical site without complications post TCAR. Will transfer to PCU. (2) Expressive aphasia: Plan: She appears to have expressive aphasia. Will obtain to evaluate for stroke. Will start OT, PT, and speech therapy. Will consult case management for possible rehab Admission and Anticipated Discharge Date Admission Date: February 19, 2024 Subjective Patient has some slight difficulty with speech. She is somewhat slightly aphasic. She has no other complaints. Physical Exam Constitutional: WD/WN, vitals as above Neck: trachea midline Respiratory: normal respiratory effort; no respiratory distress Auscultati on: lungs clear to auscultation bilaterally Cardiovascular: Rate/Rhythm: regular rate and regular rhythm Extremities: normal capillary refill Gastrointestinal (Abdomen): Inspection/Auscultation: abdomen normal to inspection Skin: + incision (Dry and clean with some mild edema) Neurologic: CN's II-XI intact bilaterally, moves all extremities and + focal motor deficit (Slight weakness both upper extremity 4/5) Speech / Cognition: + abnormal speech and + expressive aphasia Psychiatric: Orientation: alert Results & Data Vital Signs (Past 12 Hours) Vital Signs Temp Pulse Resp BP Pulse Ox O2 Del Method 02/20/24 12:00 36.8 C 02/20/24 11:00 71 18 100 02/20/24 10:06 66 16 99 02/20/24 09:09 72 18 99 02/20/24 08:06 69 18 99 02/20/24 07:39 74 18 98 02/20/24 07:36 36.8 C 02/20/24 07:30 135/86 02/20/24 07:30 135/86 02/20/24 07:27 71 19 99 Room Air 02/20/24 07:15 79 19 97 02/20/24 07:12 70 20 98 02/20/24 06:57 71 19 99 02/20/24 05:51 64 17 99 02/20/24 05:45 163/71 H 02/20/24 05:45 163/71 H 02/20/24 05:39 64 15 99 02/20/24 05:30 155/72 H 02/20/24 05:30 155/72 H 02/20/24 05:21 65 16 99 02/20/24 05:18 67 17 99 02/20/24 05:15 153/73 H 02/20/24 05:15 153/73 H 02/20/24 05:15 153/73 H 02/20/24 05:15 153/73 H 02/20/24 05:12 67 16 98 02/20/24 05:03 63 17 99 02/20/24 05:00 159/71 H 02/20/24 04:57 64 15 99 02/20/24 04:54 65 16 99 02/20/24 04:45 161/68 H 02/20/24 04:36 65 17 98 02/20/24 04:15 155/74 H 02/20/24 04:15 65 16 98 02/20/24 04:00 157/88 H 02/20/24 04:00 157/88 H 02/20/24 04:00 157/88 H 02/20/24 04:00 76 16 98 02/20/24 04:00 36.8 C 02/20/24 04:00 76 157/88 H 02/20/24 03:45 167/83 H 02/20/24 03:45 167/83 H 02/20/24 03:33 70 19 99 02/20/24 03:31 166/83 H 02/20/24 03:31 166/83 H 02/20/24 03:27 74 17 99 02/20/24 03:18 87 18 99 02/20/24 03:15 176/84 H 02/20/24 03:00 163/86 H 02/20/24 02:57 69 20 99 02/20/24 02:48 65 16 99 02/20/24 02:45 155/77 H 02/20/24 02:45 155/77 H 02/20/24 02:45 155/77 H 02/20/24 02:45 155/77 H 02/20/24 02:15 165/78 H 02/20/24 02:12 65 16 99 02/20/24 02:00 64 18 99 02/20/24 02:00 173/80 H 02/20/24 02:00 173/80 H 02/20/24 02:00 173/80 H 02/20/24 01:45 62 15 98 02/20/24 01:33 66 18 98 02/20/24 01:30 166/87 H 02/20/24 01:30 166/87 H 02/20/24 01:30 166/87 H 02/20/24 01:30 166/87 H 02/20/24 01:30 166/87 H 02/20/24 01:27 67 18 99
[2024-02-20] MEDS: GADOBUTROL 65ML VIAL IV ONE (16:18)
--- NOTE | 2024-02-20 16:41 | Magnetic Resonance Report ---
MR brain wo/w con CLINICAL HISTORY: cva TECHNIQUE: Multiplanar and multisequence MR images of the brain were obtained prior to and following administration of gadolinium contrast. Comparison: None available at the time of this dictation. FINDINGS: No abnormal restricted diffusion is identified. Numerous scattered foci of restricted diffusion are s een in the left cerebrum most prominently the anterior and posterior watersheds. The ventricular syst em is normal in appearance. No mass or abnormal enhancement is seen. There is no mass effect or midli ne shift. There is no evidence of acute intraparenchymal hemorrhage. No extra axial fluid collections are seen. The corpus callosum, pituitary gland, and cerebellar tonsils appear grossly unremarkable. Flow voids of the major intracranial arterial vessels are identified. The imaged portions of the para nasal sinuses, mastoid air cells, and orbits are unremarkable. IMPRESSION: Scattered foci of restricted diffusion compatible with anterior and posterior watershed ischemia on t he left. ACT 112: Negative or not required by law. Electronically signed by: Herman Lazcano M.D. 02/20/2024 4:40 PM
[2024-02-20] MEDS: CLOPIDOGREL BISULFATE 75 MG TAB PO SCH (17:18)
--- NOTE | 2024-02-21 09:10 | Surgery Progress Note ---
Date of Service February 21, 2024 Assessment & Plan (1) Stenosis of left internal carotid artery: Plan: This patient is postoperative day 2 from a left TCAR. She is doing well. She did have some right upper extremity weakness, difficulty following commands, and expressive aphasia yesterday. This has totally resolved and she is back to baseline. MRI showed areas of watershed ischemia. Being that she is back to baseline with no neurological deficits we will send her home today. (2) Expressive aphasia: Plan: Her expressive aphasia has totally resolved. Admission and Anticipated Discharge Date Admission Date: February 19, 2024 Subjective Patient is awake, alert and oriented x 3. She no longer has any expressive aphasia. She has no weakness in the upper extremity should. Her family claims that she is back to normal with both speech and function. Physical Exam Constitutional: WD/WN, vitals as above Neck: trachea midline Respiratory: normal respiratory effort; no respiratory distress Auscultation: lungs clear to auscultation bilaterally Cardiovascular: Rate/Rhythm: regular rate and regular rhythm Extremities: normal capillary refill Gastrointestinal (Abdomen): Inspection/Auscultation: abdomen normal to inspection Skin: + incision (Dry and clean with some mild edema) Neurologic: CN's II-XI intact bilaterally, moves all extremities and + focal motor deficit (Normal strength in both upper and lower extremities and equal bilaterally) Speech / Cognition: normal speech and no expressive aphasia Psychiatric: A+Ox3, euthymic affect Results & Data Vital Signs (Past 12 Hours) Vital Signs Temp Pulse Resp BP Pulse Ox 02/21/24 06:15 60 15 93 02/21/24 06:08 151/80 H 02/21/24 06:08 151/80 H 02/21/24 06:06 68 15 90 02/21/24 04:03 60 14 98 02/21/24 04:00 152/77 H 02/21/24 04:00 152/77 H 02/21/24 04:00 152/77 H 02/21/24 04:00 152/77 H 02/21/24 04:00 37.0 C 02/21/24 03:51 60 15 97 02/21/24 03:45 65 15 96 02/21/24 03:30 63 7 L 94 02/21/24 03:00 62 16 97 02/21/24 03:00 151/72 H 02/21/24 02:45 63 12 96 02/21/24 02:30 66 12 96 02/21/24 02:00 59 L 15 97 02/21/24 02:00 152/79 H 02/21/24 01:33 76 18 97 02/21/24 01:27 73 12 96 02/21/24 01:00 159/80 H 02/21/24 01:00 159/80 H 02/21/24 01:00 60 15 97 02/21/24 00:45 59 L 15 96 02/21/24 00:30 59 L 15 97 02/21/24 00:18 66 18 97 02/21/24 00:00 76 11 L 97 02/21/24 00:00 174/80 H 02/21/24 00:00 174/80 H 02/21/24 00:00 174/80 H 02/21/24 00:00 37.0 C 02/21/24 00:00 61 02/20/24 23:33 61 15 96 02/20/24 23:12 61 16 96 02/20/24 23:00 176/80 H 02/20/24 23:00 176/80 H 02/20/24 23:00 176/80 H 02/20/24 22:48 62 14 98 02/20/24 22:30 59 L 15 97 02/20/24 22:18 61 17 97 02/20/24 22:03 67 17 96 02/20/24 21:57 78 16 95 02/20/24 21:51 66 19 97 02/20/24 21:15 63 13 97
--- NOTE | 2024-02-21 09:17 | Discharge Summary ---
Date of Service February 21, 2024 Admission HPI Per Admitting Provider Ms. Willis is a 77-year-old fairly healthy female who was having routine ultrasounds for carotid stenosis. It was found that the left carotid stenosis has worsened. She underwent CT angiography which showed a severe stenosis of her left internal carotid artery at the bifurcation of the common. She has no history of CVAs or TIAs or amaurosis fugax. She has no complaints of claudication of the upper or lower extremities. Admission Exam Per Admitting Provider On exam she is awake alert and oriented x 3. Her blood pressure is 162/88 on the right and 166/90 on the left. She is in no apparent distress. Her radials and carotids are +2 bilaterally. There is a left carotid bruit. Lungs are clear. Heart is regular in rhythm abdominal exam is benign. Femorals and pedal pulses are all +2 bilaterally. She has normal capillary refill in both feet. Neurologic exam is grossly intact motor and sensory function Principal Diagnosis Severe left internal carotid artery stenosis Discharge Exam Constitutional: WD/WN, vitals as above Neck: trachea midline Respiratory: normal respiratory effort; no respiratory distress Auscultation: lungs clear to auscultation bilaterally Cardiovascular: Rate/Rhythm: regular rate and regular rhythm Extremities: normal capillary refill Gastrointestinal (Abdomen): Inspection/Auscultation: abdomen normal to inspection Skin: + incision (Dry and clean with some mild edema) Neurologic: CN's II-XI intact bilaterally, moves all extremities and + focal motor deficit (Slight weakness both upper extremity 4/5) Speech / Cognition: + abnormal speech and + expressive aphasia Psychiatric: Orientation: alert Discharge Data Allergies Allergy/AdvReac Type Severity Reaction Status Date / Time No Known Drug Allergies Allergy Verified 02/19/24 10:22 Consultations 02/19/24 18:52 Consult [facility] Routine Procedures Performed Operation Date: 02/19/24 11:30 Actual Procedures p Left Transcarotid Artery Revascularization, Ultrasound Right Common Femoral Vein(Left) - Derek Hermosillo MD Ordered Studies 02/19/24 07:16 EV angio carotid external LT Routine US EV guide vascular access Routine 02/20/24 13:15 MR brain wo/w con Stat Total Time Total Time Spent Total Time Spent (In Minutes): 0 Discharge Plan Discharge Items Patient Disposition: Home - Self-Care Reason For Visit: Left Carotid Artery Stenosis Discharge Diagnosis: Severe left internal carotid artery stenosis Activity: Per Instructions section Non-emergency contact: Surgeon Call non-emergency contact if: your temperature is above 101.5, your wound has increased redness, your wound has increased drainage and your wound pain has increased Follow-up/Referrals: Patrick Fuentes DO [Primary Care Provider] - Diet: Heart Healthy Addtl Attending Provider Instructions: SPECIAL CARE INSTRUCTIONS: Medications: * Continue to take Aspirin, Plavix, and statin as directed. Incision Care: * You may shower, but do not rub incision. You may let the warm soapy water run over it. Be sure to dry the incision well after bathing. * Do not shave directly over the incision until it is healed. * DO NOT IMMERSE THE INCISION IN A TUB/POOL/etc. UNTIL HEALED. Restrictions: * Do not drive for at least one week or if you are still taking any narcotic pain medication. * Do not lift anything heavier than a gallon of milk for one week after going home. Possible Complications: * Numbness - It is normal to have some numbness around the incision. Numbness can extend beyond the incision to areas of the neck, ear and face. The numbness is due to bruising of nerves during the surgery and will gradually improve over a period of months. * Hoarseness/Difficulty Speaking and Swallowing - The bruising of nerves in the neck can also cause a hoarse voice, difficulty speaking or swallowing. This may improve over time, HOWEVER, if it continues for more than a few days please contact our office ([phone]). * Excessive Swelling - There will be some swelling immediately after surgery which usually resolves within one week. If you notice that the swelling is getting worse, notify your surgeon ([phone]). * Drainage/Bleeding - If there is any drainage or bleeding, it should be a very small amount (less than a teaspoon per day). If you have excessive bleeding or drainage from the incision, call your surgeon ([phone]) right away. ACTIVATION OF EMERGENCY MEDICAL SYSTEM: Call 911, immediately, if you experience any of the following: Warning Signs and Symptoms of Stroke: * Sudden numbness or weakness of the face, arm or leg, especially on one side of the body * Sudden confusion, trouble speaking or understanding * Sudden trouble seeing in one or both eyes * Sudden trouble walking, dizziness, loss of balance or coordination * Sudden severe headache with no cause Do not delay calling 911 if you experience any warning signs or symptoms of a stroke. Delay in seeking medical attention may affect what treatments can be given to you. Risk Factors for Stroke: You can reduce your chances of stroke by working with your medical provider to adopt a healthy lifestyle. Some specific ways to lower your chance of stroke are: * If you are a smoker, now is the time to stop smoking cigarettes * If you are diabetic, improve the control of your blood sugars * Avoid excessive amounts of alcohol * Control high blood pressure * Lose weight if you are overweight * Be sure to lead an active lifestyle * Eat a healthy diet low in salt, cholesterol and fat You should know about other risk factors for stroke that you are unable to control. These include: * Age 55 years or older * Male gender * Certain racial groups: , or / * Family History of Stroke, Mini stroke or Heart Attack * Sickle Cell Disease You will be receiving a call from the Vascular Surgery Nurse after you are discharged. FOLLOW UP VISIT: It is important for you to keep your follow up appointments with your medical provider. Keep any scheduled doctor appointments. Call [phone] to schedule a follow up appointment if one not already scheduled. Pending Studies at Discharge: No Stand-Alone Forms: My [facility], Smoking Cessation Medications and DC Order Prescriptions: New oxycodone-acetaminophen [Percocet] 5-325 mg Tablet 1 - 2 tab PO Q4H PRN (Reason: pain) Qty: 7 0RF Continued atorvastatin 20 mg tablet 20 mg PO QPM clopidogrel [Plavix] 75 mg tablet 75 mg PO QAM aspirin [Adult Low Dose Aspirin] 81 mg tablet,delayed release (DR/EC) 81 mg PO QPM multivitamin tablet 1 tab PO QAM wheat dextrin 1 gram tablet 1 gm PO QAM coenzyme Q10 [Co Q-10] 200 mg capsule 200 mg PO QAM cholecalciferol (vitamin D3) 1,000 unit capsule 1,000 units PO QAM cranberry 500 mg capsule 500 mg PO QAM Eliquis 5 mg tablet 5 mg PO BID Qty: 90 3RF atenolol 50 mg tablet 50 mg PO QPM Discharge Orders: Discharge Order (Routine); Ordered 02/21/24 Ordered By: Derek J Simoni Admission Data Admit Date/Time: 02/19/24 14:41 Attending Provider: Derek Hermosillo Admit Provider: Derek Hermosillo Primary Care Provider: Patrick Fuentes Other Providers: Ramesh Browning; Deshaun Wiley; Donovan Lacy; Gumaro Oneil; Hector Long; Pietro Cisneros; Mihai Saha; Amber Luis; Sloane Finn; Murray Garcia; Eliud Dewitt; Ursula Monterroso
--- NOTE | 2024-02-21 09:22 | Surgery Progress Note ---
Date of Service February 21, 2024 Assessment & Plan (1) Stenosis of left internal carotid artery: Plan: Patient is day 2 post TCAR. She is doing well. She is totally back to baseline with total recovery of her speech and strength. Will discharge her today. (2) Expressive aphasia: Plan: She has had total recovery from her expressive aphasia. Admission and Anticipated Discharge Date Admission Date: February 19, 2024 Subjective Patient has no complaints. The without difficulty and he has a total length of her upper and lower extremities. Physical Exam Constitutional: WD/WN, vitals as above Neck: trachea midline Respiratory: normal respiratory effort; no respiratory distress Cardiovascular: Rate/Rhythm: regular rate and regular rhythm Extremities: normal capillary refill Skin: + incision (Incision is dry and clean wi th a small amount of ecchymosis) Neurologic: CN's II-XI intact bilaterally and moves all extremities; no focal motor deficits Speech / Cognition: normal speech and no expressive aphasia Psychiatric: A+Ox3, euthymic affect Results & Data Vital Signs (Past 12 Hours) Vital Signs Temp Pulse Resp BP Pulse Ox 02/21/24 06:15 60 15 93 02/21/24 06:08 151/80 H 02/21/24 06:08 151/80 H 02/21/24 06:06 68 15 90 02/21/24 04:03 60 14 98 02/21/24 04:00 152/77 H 02/21/24 04:00 152/77 H 02/21/24 04:00 152/77 H 02/21/24 04:00 152/77 H 02/21/24 04:00 37.0 C 02/21/24 03:51 60 15 97 02/21/24 03:45 65 15 96 02/21/24 03:30 63 7 L 94 02/21/24 03:00 62 16 97 02/21/24 03:00 151/72 H 02/21/24 02:45 63 12 96 02/21/24 02:30 66 12 96 02/21/24 02:00 59 L 15 97 02/21/24 02:00 152/79 H 02/21/24 01:33 76 18 97 02/21/24 01:27 73 12 96 02/21/24 01:00 159/80 H 02/21/24 01:00 159/80 H 02/21/24 01:00 60 15 97 02/21/24 00:45 59 L 15 96 02/21/24 00:30 59 L 15 97 02/21/24 00:18 66 18 97 02/21/24 00:00 76 11 L 97 02/21/24 00:00 174/80 H 02/21/24 00:00 174/80 H 02/21/24 00:00 174/80 H 02/21/24 00:00 37.0 C 02/21/24 00:00 61 02/20/24 23:33 61 15 96 02/20/24 23:12 61 16 96 02/20/24 23:00 176/80 H 02/20/24 23:00 176/80 H 02/20/24 23:00 176/80 H 02/20/24 22:48 62 14 98 02/20/24 22:30 59 L 15 97 02/20/24 22:18 61 17 97 02/20/24 22:03 67 17 96 02/20/24 21:57 78 16 95 02/20/24 21:51 66 19 97
--- NOTE | 2024-02-21 09:24 | Discharge Summary ---
Date of Service February 21, 2024 Admission HPI Per Admitting Provider Ms. Willis is a 77-year-old fairly healthy female who was having routine ultrasounds for carotid stenosis. It was found that the left carotid stenosis has worsened. She underwent CT angiography which showed a severe stenosis of her left internal carotid artery at the bifurcation of the common. She has no history of CVAs or TIAs or amaurosis fugax. She has no complaints of claudication of the upper or lower extremities. Admission Exam Per Admitting Provider On exam she is awake alert and oriented x 3. Her blood pressure is 162/88 on the right and 166/90 on the left. She is in no apparent distress. Her radials and carotids are +2 bilaterally. There is a left carotid bruit. Lungs are clear. Heart is regular in rhythm abdominal exam is benign. Femorals and pedal pulses are all +2 bilaterally. She has normal capillary refill in both feet. Neurologic exam is grossly intact motor and sensory function Principal Diagnosis Severe left internal carotid artery stenosis Discharge Exam Constitutional WD/WN, vitals as above Neck trachea midline Respiratory normal respiratory effort; no respiratory distress Cardiovascular Rate/Rhythm: regular rate and regular rhythm Extremities: normal capillary refill Skin + incision (Incision is dry and clean with a small amount of ecchymosis) Neurologic CN's II-XI intact bilaterally and moves all extremities; no focal motor deficits Speech / Cognition: normal speech and no expressive aphasia Psychiatric A+Ox3, euthymic affect Orientation: alert Discharge Data Allergies Allergy/AdvReac Type Severity Reaction Status Date / Time No Known Drug Allergies Allergy Verified 02/19/24 10:22 Consultations 02/19/24 18:52 Consult Fiberglass Technician Routine Procedures Performed Operation Date: 02/19/24 11:30 Actual Procedures p Left Transcarotid Artery Revascularization, Ultrasound Right Common Femoral Vein(Left) - Derek Hermosillo MD Ordered Studies 02/19/24 07:16 EV angio carotid external LT Routine US EV guide vascular access Routine 02/20/24 13:15 MR brain wo/w con Stat Hospital Course (1) Stenosis of left internal carotid artery: Patient is day 2 post TCAR. She is doing well. She is totally back to baseline with total recovery of her speech and strength. Will discharge her today. (2) Expressive aphasia: She has had total recovery from her expressive aphasia. Total Time Total Time Spent Total Time Spent (In Minutes): 0 Discharge Plan Discharge Items Patient Disposition: Home - Self-Care Reason For Visit: Left Carotid Artery Stenosis Discharge Diagnosis: Severe left internal carotid artery stenosis Activity: Per Instructions section Non-emergency contact: Surgeon Call non-emergency contact if: your temperature is above 101.5, your wound has increased redness, your wound has increased drainage and your wound pain has increased Follow-up/Referrals: Patrick Fuentes DO [Primary Care Provider] - Diet: Heart Healthy Addtl Attending Provider Instructions: SPECIAL CARE INSTRUCTIONS: Medications: * Continue to take Aspirin, Plavix, and statin as directed. Incision Care: * You may shower, but do not rub incision. You may let the warm soapy water run over it. Be sure to dry the incision well after bathing. * Do not shave directly over the incision until it is healed. * DO NOT IMMERSE THE INCISION IN A TUB/POOL/etc. UNTIL HEALED. Restrictions: * Do not drive for at least one week or if you are still taking any narcotic pain medication. * Do not lift anything heavier than a gallon of milk for one week after going home. Possible Complications: * Numbness - It is normal to have some numbness around the incision. Numbness can extend beyond the incision to areas of the neck, ear and face. The numbness is due to bruising of nerves during the surgery and will gradually improve over a period of months. * Hoarseness/Difficulty Speaking and Swallowing - The bruising of nerves in the neck can also cause a hoarse voice, difficulty speaking or swallowing. This may improve over time, HOWEVER, if it continues for more than a few days please contact our office ([phone]). * Excessive Swelling - There will be some swelling immediately after surgery which usually resolves within one week. If you notice that the swelling is getting worse, notify your surgeon ([phone]). * Drainage/Bleeding - If there is any drainage or bleeding, it should be a very small amount (less than a teaspoon per day). If you have excessive bleeding or drainage from the incision, call your surgeon ([phone]) right away. ACTIVATION OF EMERGENCY MEDICAL SYSTEM: Call 911, immediately, if you experience any of the following: Warning Signs and Symptoms of Stroke: * Sudden numbness or weakness of the face, arm or leg, especially on one side of the body * Sudden confusion, trouble speaking or understanding * Sudden trouble seeing in one or both eyes * Sudden trouble walking, dizziness, loss of balance or coordination * Sudden severe headache with no cause Do not delay calling 911 if you experience any warning signs or symptoms of a stroke. Delay in seeking medical attention may affect what treatments can be given to you. Risk Factors for Stroke: You can reduce your chances of stroke by working with your medical provider to adopt a healthy lifestyle. Some specific ways to lower your chance of stroke are: * If you are a smoker, now is the time to stop smoking cigarettes * If you are diabetic, improve the control of your blood sugars * Avoid excessive amounts of alcohol * Control high blood pressure * Lose weight if you are overweight * Be sure to lead an active lifestyle * Eat a healthy diet low in salt, cholesterol and fat You should know about other risk factors for stroke that you are unable to control. These include: * Age 55 years or older * Male gender * Certain racial groups: , or / * Family History of Stroke, Mini stroke or Heart Attack * Sickle Cell Disease You will be receiving a call from the Vascular Surgery Nurse after you are discharged. FOLLOW UP VISIT: It is important for you to keep your follow up appointments with your medical provider. Keep any scheduled doctor appointments. Call [phone] to schedule a follow up appointment if one not already scheduled. Pending Studies at Discharge: No Stand-Alone Forms: My [facility], Smoking Cessation Medications and DC Order Prescriptions: New oxycodone-acetaminophen [Percocet] 5-325 mg Tablet 1 - 2 tab PO Q4H PRN (Reason: pain) Qty: 7 0RF Continued atorvastatin 20 mg tablet 20 mg PO QPM clopidogrel [Plavix] 75 mg tablet 75 mg PO QAM aspirin [Adult Low Dose Aspirin] 81 mg tablet,delayed release (DR/EC) 81 mg PO QPM multivitamin tablet 1 tab PO QAM wheat dextrin 1 gram tablet 1 gm PO QAM coenzyme Q10 [Co Q-10] 200 mg capsule 200 mg PO QAM cholecalciferol (vitamin D3) 1,000 unit capsule 1,000 units PO QAM cranberry 500 mg capsule 500 mg PO QAM Eliquis 5 mg tablet 5 mg PO BID Qty: 90 3RF atenolol 50 mg tablet 50 mg PO QPM Discharge Orders: Discharge Order (Routine); Ordered 02/21/24 Ordered By: Derek Hermosillo Admission Data Admit Date/Time: 02/19/24 14:41 Attending Provider: Derek Hermosillo Admit Provider: Derek Hermosillo Primary Care Provider: Patrick Fuentes Other Providers: Ramesh Browning; Deshaun Wiley; Donovan Lacy; Gumaro Oneil; Hector Long; Pietro Cisneros; Mihai Saha; Amber Luis; Sloane Finn; Murray Garcia; Eliud Dewitt; Ursula Monterroso
[2024-02-21] MEDS: OPTIRAY 320 125ml IV ONE (11:22)
--- NOTE | 2024-02-21 11:54 | CT Scan Report ---
CT angio neck with con CLINICAL HISTORY: tia TECHNIQUE: CT angiography of the neck was performed following intravenous administration of iodinate d contrast. Coronal and sagittal MIPS were obtained from the axial data set and were submitted for re view. Automated dose lowering techniques and/or adjustment according to patient size were utilized f or this examination. All measurements were calculated based on NASCET criteria. CT DOSE: 927.85 mGy.cm Comparison: None available at the time of this dictation. FINDINGS: Left thyroid nodule measures 22 mm in diameter. CTA Neck: A 3 vessel aortic arch is shown. There is no significant atherosclerotic plaque in the aor tic arch or the origins of the innominate, left common carotid, and left subclavian arteries. The co mmon carotid, external carotid, cervical segments of the internal carotid arteries, and the cervical segments of the vertebral arteries are patent without hemodynamically significant stenosis. Right car otid stent is seen. The left vertebral artery is dominant. IMPRESSION: 1. No occlusion, hemodynamically significant stenosis, or dissection in the major cervical arteries. 2. Left thyroid nodule, if not previously evaluated nonemergent thyroid ultrasound can be performed. . Assessment of stenosis of the internal carotid arteries is based on NASCET criteria. ACT 112: Negative or not required by law. Electronically signed by: Herman Lazcano M.D. 02/21/2024 11:52 AM
--- NOTE | 2024-02-21 12:29 | CT Scan Report ---
CT angio head wo/w CLINICAL HISTORY: 78 years-old Female with tia. Acute strokelike symptoms COMPARISON STUDY: Brain MRI 02/20/2024, CT neck 10/30/2023 TECHNIQUE: Unenhanced axial CT scan of the brain is performed. Subsequently, following the IV adminis tration of 120 cc of Optiray, CT angiogram of the head was performed from the skull base to the apex. Images are reviewed in the axial, sagittal, and coronal planes. 3-D MIPS images are created and asse ssed. IV contrast was administered without complication. All measurements were obtained according to NASCET criteria. A dose lowering technique was utilized adhering to the principles of ALARA. FINDINGS: CT BRAIN: There is no acute intracranial hemorrhage, midline shift, hydrocephalus, intracranial mass, or abnorm al extra-axial collections. No abnormal intra-axial or extra-axial enhancement. Involutional changes with chronic microvascular ischemic disease. Numerous left cerebral ischemic infarcts redemonstrated with associated cytotoxic edema, better visualized on the comparison brain MRI. Mastoid air cells and middle ear cavities are clear. No calvarial fracture. Paranasal sinuses are clear. CT ANGIOGRAM OF THE BRAIN: The imaged bilateral internal carotid arteries are patent. The right internal carotid artery is signi ficantly smaller compared to the left which is a chronic finding. Moderate atherosclerosis of the dis katie internal carotid arteries without high-grade stenosis. Developmentally diminutive right A1 segmen t of the anterior cerebral artery. The bilateral anterior and middle cerebral arteries are also paten t. The vertebrobasilar system and posterior cerebral arteries are widely patent. There is no aneurysm , high-grade stenosis, or proximal branch occlusion identified. Dural sinuses appear patent. IMPRESSION: 1. 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 2. No acute intracranial hemorrhage or midline shift. 3. No aneurysm, dissection, high-grade stenosis or arterial occlusion identified. ACT 112: Negative or not required by law. The above report was generated using voice recognition software. It may contain grammatical, syntax o r spelling errors. Electronically signed by: Philipp Fonseca M.D. 02/21/2024 12:27 PM
--- NOTE | 2024-02-22 08:36 | Surgery Progress Note ---
Date of Service February 21, 2024 Assessment & Plan (1) Stenosis of left internal carotid artery: Plan: Patient is day 2 post TCAR. She was doing well. She was totally back to baseline with total recovery of her speech and strength this morning. (2) Expressive aphasia: Plan: She has developed recurrent expressive aphasia. Will not discharge. consult neuro. Will obtain CTA and echo Admission and Anticipated Discharge Date Admission Date: February 19, 2024 Subjective Patient has developed expressive aphasia at the time of discharge. Physical Exam Constitutional: WD/WN, vitals as above Neck: trachea midline Respiratory: normal respiratory effort; no respiratory distress Cardiovascular: Rate/Rhythm: regular rate and regular rhythm Extremities: normal capillary refill Skin: + incision (Incision is dry and clean wi th a small amount of ecchymosis) Neurologic: CN's II-XI intact bilaterally and moves all extremities Speech / Cognition: + abnormal speech and + expressive aphasia Psychiatric: Orientation: alert Results & Data Vital Signs (Past 12 Hours) Vital Signs Temp Pulse Pulse Resp BP BP BP 02/21/24 12:10 187/90 H 02/21/24 12:10 187/90 H 02/21/24 12:10 187/90 H 02/21/24 12:10 187/90 H 02/21/24 12:03 78 16 02/21/24 12:00 72 12 02/21/24 12:00 155/91 H 02/21/24 12:00 155/91 H 02/21/24 11:35 157/106 H 02/21/24 11:33 82 19 02/21/24 11:31 114/84 02/21/24 11:31 114/84 02/21/24 11:06 72 02/21/24 11:04 157/80 H 02/21/24 11:04 157/80 H 02/21/24 11:03 65 12 02/21/24 10:47 162/82 H 02/21/24 10:45 69 12 02/21/24 10:33 69 16 02/21/24 10:12 70 22 02/21/24 09:59 71 16 166/85 H 144/62 H 02/21/24 09:45 72 14 02/21/24 09:15 69 16 02/21/24 09:14 167/83 H 02/21/24 09:14 167/83 H 02/21/24 09:08 143/81 H 02/21/24 08:59 152/94 H 02/21/24 08:45 71 19 02/21/24 08:03 74 24 02/21/24 08:01 144/77 H 02/21/24 08:01 144/77 H 02/21/24 08:00 72 02/21/24 07:54 74 16 02/21/24 07:00 60 16 02/21/24 06:15 60 15 02/21/24 06:08 151/80 H 02/21/24 06:08 151/80 H 02/21/24 06:06 68 15 02/21/24 04:03 60 14 02/21/24 04:00 152/77 H 02/21/24 04:00 152/77 H 02/21/24 04:00 152/77 H 02/21/24 04:00 152/77 H 02/21/24 04:00 37.0 C 02/21/24 03:51 60 15 02/21/24 03:45 65 15 02/21/24 03:30 63 7 L 02/21/24 03:00 62 16 02/21/24 03:00 151/72 H 02/21/24 02:45 63 12 02/21/24 02:30 66 12 02/21/24 02:00 59 L 15 02/21/24 02:00 152/79 H 02/21/24 01:33 76 18 02/21/24 01:27 73 12 02/21/24 01:00 159/80 H 02/21/24 01:00 159/80 H 02/21/24 01:00 60 15 BP Pulse Ox 02/21/24 12:10 02/21/24 12:10 02/21/24 12:10 02/21/24 12:10 02/21/24 12:03 94 02/21/24 12:00 94 02/21/24 12:00 02/21/24 12:00 02/21/24 11:35 02/21/24 11:33 02/21/24 11:31 02/21/24 11:31 02/21/24 11:06 02/21/24 11:04 02/21/24 11:04 02/21/24 11:03 93 02/21/24 10:47 02/21/24 10:45 02/21/24 10:33 02/21/24 10:12 02/21/24 09:59 143/72 H 95 02/21/24 09:45 02/21/24 09:15 02/21/24 09:14 02/21/24 09:14 02/21/24 09:08 02/21/24 08:59 02/21/24 08:45 95 02/21/24 08:03 95 02/21/24 08:01 02/21/24 08:01 02/21/24 08:00 02/21/24 07:54 95 02/21/24 07:00 98 02/21/24 06:15 93 02/21/24 06:08 02/21/24 06:08 02/21/24 06:06 90 02/21/24 04:03 98 02/21/24 04:00 02/21/24 04:00 02/21/24 04:00 02/21/24 04:00 02/21/24 04:00 02/21/24 03:51 97 02/21/24 03:45 96 02/21/24 03:30 94 02/21/24 03:00 97 02/21/24 03:00 02/21/24 02:45 96 02/21/24 02:30 96 02/21/24 02:00 97 02/21/24 02:00 02/21/24 01:33 97 02/21/24 01:27 96 02/21/24 01:00 02/21/24 01:00 02/21/24 01:00 97
--- NOTE | 2024-02-22 08:57 | Surgery Progress Note ---
Date of Service February 22, 2024 Assessment & Plan (1) Stenosis of left internal carotid artery: Plan: Patient is day 3 post TCAR. She is improving with her speech. (2) Expressive aphasia: Plan: She has developed recurrent expressive aphasia yesterday. It has markedly improved since yesterday but not quiet to baseline yet. Neuro input appreciated. Will continue ASA, plavix and statin per TCAR protocol. Will continue to observe. Possibly can d/c tomorrow if no new deveopments. Admission and Anticipated Discharge Date Admission Date: February 19, 2024 Subjective Patient has developed expressive aphasia at the time of discharge yesterday. She now has returned again to baseline. Physical Exam Constitutional: WD/WN, vitals as above Neck: trachea midline Respiratory: normal respiratory effort; no respiratory distress Cardiovascular: Rate/Rhythm: regular rate and regular rhythm Extremities: normal capillary refill Skin: + incision (Incision is dry and clean wi th a small amount of ecchymosis) Neurologic: CN's II-XI intact bilaterally and moves all extremities; no focal motor deficits Speech / Cognition: + abnormal speech (improving) and + expre ssive aphasia (markedly improving) Psychiatric: Orientation: alert and oriented x 3 Results & Data Vital Signs (Past 12 Hours) Vital Signs Temp Pulse Pulse Pulse Resp BP Pulse Ox 02/22/24 08:29 66 02/22/24 08:00 37.1 C 68 16 149/81 H 92 02/22/24 04:00 36.9 C 67 17 159/79 H 94 02/22/24 00:00 90 02/22/24 00:00 37.4 C 76 16 161/81 H 94 O2 Del Method 02/22/24 08:29 02/22/24 08:00 Room Air 02/22/24 04:00 Room Air 02/22/24 00:00 02/22/24 00:00 Room Air
--- NOTE | 2024-02-22 09:40 | Neurology Consultation ---
Date of Consultation February 22, 2024 Assessment & Plan (1) Acute CVA (cerebrovascular accident): (2) Expressive aphasia: (3) Chronic cerebral ischemia: (4) Stenosis of left internal carotid artery: (5) Paroxysmal atrial fibrillation: Plan Patient underwent a left transcarotid arterial revascularization procedure February 18. She has numerous tiny scattered acute strokes in the left hemisphere (anterior and posterior watershed distribution) with minimal clinical accompaniment. There is some mild dysarthria and expressive aphasia and perhaps some proximal right upper extremity weakness. She is improving clinically. There is no evidence of hemorrhage. Patient has a history of paroxysmal atrial fibrillation and PFO and is on apixaban chronically. Currently she is on 81 mg aspirin and 75 mg clopidogrel as protocol for the vascular surgical procedure. Patient has significant chronic cerebral ischemia with an old nature. This is consistent with small vessel ischemic disease and likely related to her history of hypertension, dyslipidemia, and age. Anticoagulant such as apixaban would not be able to prevent small vessel ischemia She has other risk factors for stroke including hypertension and dyslipidemia. Recommendations: 1. Continue aspirin and clopidogrel per protocol. Once the protocol is finished from a vascular surgery standpoint, we can (from a neurologic standpoint) just be on 1 antiplatelet medication. Given her other vascular anomalies (left vertebral and right carotid system) I think 75 mg clopidogrel would be reasonable 2. Continue apixaban for her paroxysmal atrial fibrillation (and PFO) to prevent cardioembolic stroke 3. Increase activity as able and continue outpatient physical and speech therapy 4. Control blood pressure aiming for a mean arterial pressure of 95-100. 5. Follow-up with neurology (Gail Carrera PA-C, in [facility]) in 3 to 4 weeks Overall, I spent a total of 100 minutes with this case including review of records, review of CT and MRI films, direct evaluation of the patient, report generation, and discussion of the case with the patient, spouse, and son at bedside, RN at bedside, and Dr. Hermosillo including differential diagnosis and treatment options. History of Present Illness Reason for Consultation: Patient is a 78-year-old, who I was asked to see at the request of Dr. Hermosillo, for neurologic evaluation regarding stroke Requesting Physician: Dr. Hermosillo Attending Physician: Derek Hermosillo MD History of Present Illness This patient has a longstanding history of high blood pressure (10 years) and was diagnosed with paroxysmal atrial fibrillation with a PFO and 2020. She has been on apixaban ever since. She has no history of stroke or diabetes, but she does have some dyslipidemia and has been on medicine for approximately 1 year In July 2022 carotid ultrasound revealed a left internal carotid artery stenosis of 50 to 69% and less than 50% on the right. Vertebrals have good flow. In September 2023 I repeat ultrasound showed no change on the right but the left had a high-grade common carotid significant stenosis. CT angiography October 2023 revealed severe stenosis at the left carotid bifurcation (very distal common carotid). There was also 50% stenosis at the origin of the left internal carotid artery and severe stenosis of the origin of the left vertebral artery. There was no stenosis noted in the right carotid or vertebral systems. November 19, [address] Hermosillo in consultation for diagnosis severe common carotid and proximal left internal carotid artery stenosis. The patient was put on 81 mg aspirin +75 mg clopidogrel in addition to her apixaban. She has had some problems with bruising on these 3 medications On February 18 she underwent a left transcarotid arterial revascularization procedure. Immediately postoperatively she was doing very well and some time later developed some dysarthria and expressive aphasia. This was transient and she did well in the ICU on February 18. On February 19, she was noted to some difficulty with speech again she did not have any obvious weakness or numbness or vision problems. She was not confused. On February 19, MRI of the brain showed multiple scattered tiny acute strokes in the anterior and posterior watershed distribution. I reviewed these films with the patient and spouse and son, who were present in the room). MRI also showed mild to moderate old small vessel ischemic disease scattered in the white matter diffusely bilaterally. On February 20 she was about to be discharged as she was very good in the morning and then around noon time she had the speech problem again. CT angiography of the head and neck were largely unremarkable. Today she is improved and only has slight speech problems. She denies weakness or numbness, dizziness, headache, vision problems, or swallowing issues. I note that her blood pressure has been somewhat elevated to varying degrees since admission. It was more markedly elevated at times on February 20. Currently blood pressure is 149/81. Allergies Allergy/AdvReac Type Severity Reaction Status Date / Time No Known Drug Allergies Allergy Verified 02/19/24 10:22 Home Medications Medication Instructions Recorded Confirmed Type cholecalciferol (vitamin D3) 25 1,000 units PO QAM 03/13/19 02/19/24 History mcg (1,000 unit) capsule coenzyme Q10 200 mg capsule (Co 200 mg PO QAM 03/13/19 02/19/24 History Q-10) multivitamin 1 tab PO QAM 03/13/19 02/19/24 History wheat dextrin 1 gram tablet 1 gm PO QAM 03/13/19 02/19/24 History cranberry 500 mg capsule 500 mg PO QAM 05/20/19 02/19/24 History apixaban 5 mg tablet (Eliquis) 5 mg PO BID #90 tabs 07/12/23 02/19/24 Rx aspirin 81 mg tablet,delayed 81 mg PO QPM 01/07/24 02/19/24 History release (Adult Low Dose Aspirin) atorvastatin 20 mg tablet 20 mg PO QPM 01/07/24 02/19/24 History clopidogrel 75 mg tablet (Plavix) 75 mg PO QAM 01/07/24 02/19/24 History atenolol 50 mg tablet 50 mg PO QPM 02/05/24 02/19/24 History oxycodone-acetaminophen 5 mg-325 1 - 2 tab PO Q4H PRN pain #7 tabs 02/21/24 Rx mg tablet (Percocet) Patient History Medical History PFO (patent foramen ovale) Noted on 2020 Echo Stenosis of left vertebral artery Submandibular lymphadenopathy Axillary adenopathy Diverticulosis Hyperlipidemia Left thyroid nodule Biopsy x3 "Benign" Left carotid stenosis Hypertension Surgical History Hx of colonoscopy S/P thyroid biopsy benign Hx of hand surgery (1999) x2 right thumb and middle finger trigger finger surgery History of removal of cyst back of neck, "benign" no anesthesia Family History Mother , age 95 Breast cancer Dementia Brother Prostate cancer Pancreatic cancer Bone cancer Father , age 98 Stroke Brain tumor Denies family history of Ovarian cancer Myocardial infarction Colorectal cancer Social History Smoking Status: Never smoker Second Hand Exposure: No; Do You Dip or Chew Tobacco: No; Hx Alcohol Use: Yes Alcohol type: wine Alcohol Intake Frequency: Monthly or Less Hx Substance Use: No Preferred Language: Italian Communication Ability: Effective Visual Impairment: Limited Hearing Ability: Normal 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: No Beliefs That Will Affect Care: None marital status: Current Living Situation: Spouse Current Living Situation Comment: with current occupational status: 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 How many Children do You have: 3 Feels Safe at Home: Yes Childhood Exposure to Second-Hand Smoke: Yes Diet: regular caffeine: Yes (coffee 3-4 cups/day) during the past year weight has: remained stable Dental Care, Regularly: Yes Physical Activity Frequency: Daily Physical Activity Frequency Comment: bowl twice a week, walks on treadmill Seatbelt Use: always Sunscreen Use: Yes Do you think of yourself as: straight/heterosexual Gender Identity: Female Assistive Devices: None Review of Systems Constitutional: no fever, no fatigue and no weakness Eyes: no diplopia, no eye pain and no worsening vision Ear, Nose, Mouth, Throat: + hearing loss; no ear pain, no tinnitus , no dizziness, no snoring, no hoarseness and no dysphagia Respiratory: no cough and no dyspnea Cardiovascular: no chest pain, no palpitations and no lightheadedness Gastrointestinal: no abdominal pain, no nausea and no vomiting Genitourinary: no dysuria, no urinary frequency and no urinary incontinence Musculoskeletal: no back pain, no neck pain, no radicular pain, no joint pain and no myalgia Integumentary: no rash and no lesions Neurologic: + abnormal speech; no gait abnormality, no localized weakness, no generalized weakness, no tingling, no numbness, no tremor(s), no abnormal movements, no headache(s), no confusion and no memory loss Psychiatric: no depression, no irritability, no anxiety, no difficulty co ncentrating, no confusion and no hallucinations Endocrine: no fatigue and no flushing Hematologic / Lymphatic: no easy bleeding and no easy bruising Allergy / Immunological: no urticaria and no problem reported Exam (Neuro) Physical Exam: The patient is right-handed. The patient is awake, alert, and attentive. Speech has very mild dysarthria and some word finding hesitancy. She does not have a joaquina aphasia however. Men tation and thought processes are intact, with full orientation and normal fund of knowledge. Mood and affect are normal and appropriate. Appearance and grooming are normal. Short and long-term memory are intact to conversation. Pupils are 4 mm bilaterally and reactive to light. Extraocular eye muscles are intact without nystagmus. Visual acuity and visual silverio seem normal grossly to confrontation. There are no deficits to sensation in the face in all 3 distributions of the fifth cranial nerve bilaterally. Corneal reflexes are positive bilaterally. Facial strength and symmetry was normal bilaterally. Hearing is mildly decreased bilaterally. Palate moves well without asymmetry. There is normal sternocleidomastoid and trapezius strength bilaterally. Tongue is midline with good strength bilaterally. Neck has a full range of motion without discomfort. There are no cervical bruits bilaterally. There are no cranial or ocular bruits. Heart is without murmur. There is a regular rhythm and rate. Cervical, thoracic, and lumbar spine are nontender to palpation. Gait is narrow based, with good arm swing, turns, and stance. Stance is reasonable eyes open. With outstretched arms there is no obvious drift. There are no resting, postural, or action tremors. There is no ataxia with finger to nose testing. There is good facility in the hands. No other abnormal involuntary movements are noted. Motor strength is 5/5 diffusely in the left upper extremity including deltoids, biceps, triceps, brachioradialis, wrist flexors and extensors, medical records assistant, and intrinsic hand muscles. The right upper extremity has 4+/5 strength in proximal muscles and closer to 5/5 in the distal muscles. Motor strength is 5/5 diffusely in the legs bilaterally including hip flexors, quadriceps, hamstrings, gastrocnemius, tibialis anterior, tibialis posterior, and Peroneii muscles bilaterally. Toe extensors are normal and there is good bulk in the extensor digitorum brevis muscles bilaterally. The limbs have good tone without rigidity or spasticity. There is no atrophy noted in the muscles. Muscle bulk is normal, there is no tenderness to palpation, no myotonia to percussion, and no fasciculations seen. Sensory examination is intact to touch and pin throughout all 4 limbs diffusely. Reflexes are 2/4 in the biceps, triceps, brachioradialis, quadriceps, and Achilles tendons bilaterally. Toes are downgoing with plantar stimulation bilaterally. Peripheral pulses are present and of normal quality distally in all 4 limbs. There is no peripheral edema noted in the limbs. Results & Data Vital Signs (Past 12 Hours) Vital Signs Temp Pulse Pulse Pulse Resp BP Pulse Ox 02/22/24 08:29 66 02/22/24 08:00 37.1 C 68 16 149/81 H 92 02/22/24 04:00 36.9 C 67 17 159/79 H 94 02/22/24 00:00 90 02/22/24 00:00 37.4 C 76 16 161/81 H 94 O2 Del Method 02/22/24 08:29 02/22/24 08:00 Room Air 02/22/24 04:00 Room Air 02/22/24 00:00 02/22/24 00:00 Room Air PG Care Time/CCT Total # of Minutes Spent Total Time Spent with Patient: Total time spent is greater than 50% in coordination of care (as documented) at patient's floor/unit and/or counseling patient: Coding Level of Care Code 48803 INT INP/OBS CARE 3/75MIN Diagnoses Acute CVA (cerebrovascular accident) I63.9 Expressive aphasia R47.01 Chronic cerebral ischemia I67.82 Stenosis of left internal carotid artery I65.22 Paroxysmal atrial fibrillation I48.0 Time Spent (min) 100
== END 2024-02-22 11:19 | disposition home or self-care (01) | DRG 35 ==
LOC: ASU 09:57 → PACUINP 14:41 → 1E 18:38 → 4W 02-21 16:38
PROC: EV.TCAR (2024-02-19 11:30)